=== PATIENT | female | born 2000 | race Caucasian/White ===

== ENCOUNTER 2021-04-22 18:50 | Observation (INO) | payer OTHER, SELFPAY ==
[~2021-04-22] VITALS: Ht 170.2 cm; Wt 81.6 kg
[2021-04-22] MEDS ORDERED: PNV91TAB10 PO (20:01)
[2021-04-22 20:25] VITALS: BP 96/54
[2021-04-22 21:07] LABS: BASOPHILS % (AUTO) 0.3 % (0.0-2.0); EOSINOPHILS # (AUTO) 0.1 K/uL (0-0.4); EOSINOPHILS % (AUTO) 0.9 % (0.0-4.0); HEMATOCRIT 26.6 % (36-48); HEMOGLOBIN 8.7 g/dL (12.0-16.0); LYMPHOCYTES # (AUTO) 1.6 K/uL (2.5-16.5); LYMPHOCYTES % (AUTO) 17.3 % (20.5-51.1); MEAN CORPUSCULAR HEMOGLOBIN 24 pg (27-31); MEAN CORPUSCULAR HGB CONC 33 g/dL (33-37); MEAN CORPUSCULAR VOLUME 73.7 fL (80-94); MONOCYTES # (AUTO) 0.7 K/uL (0.8-1.0); MONOCYTES % (AUTO) 7.8 % (1.7-9.3); NEUTROPHILS # (AUTO) 6.8 K/uL (1.8-7.7); NEUTROPHILS % (AUTO) 73.7 % (42.2-75.2); PLATELET COUNT (AUTO) 214 K/uL (140-450); RED CELL DISTRIBUTION WIDTH 18.1 % (11.6-13.7); WHITE BLOOD COUNT (AUTO) 9.2 K/uL (4.5-11.0)
[2021-04-22 21:17] LABS: BILIRUBIN,URINE NEGATIVE (NEGATIVE); BLOOD, URINE NEGATIVE (NEGATIVE); COLOR,URINE YELLOW (YELLOW); LEUKOCYTE ESTERASE ,URINE 3+ (NEGATIVE); NITRITE, URINE NEGATIVE (NEGATIVE); PH,URINE 6.5 (5.0-9.0); UGLUCOSE NEGATIVE (NEGATIVE)
[2021-04-22 21:18] LABS: APPEARANCE,URINE CLOUDY (CLEAR)
[2021-04-22 22:10] LABS: RBC,URINE 0-5 /HPF (0-5); WBC,URINE 60-80 /HPF (0-5)
[2021-04-23 01:00] LABS: APPEARANCE,URINE CLEAR (CLEAR); BILIRUBIN,URINE NEGATIVE (NEGATIVE); BLOOD, URINE NEGATIVE (NEGATIVE); COLOR,URINE YELLOW (YELLOW); LEUKOCYTE ESTERASE ,URINE NEGATIVE (NEGATIVE); NITRITE, URINE NEGATIVE (NEGATIVE); PH,URINE 6.5 (5.0-9.0); UGLUCOSE NEGATIVE (NEGATIVE)
== END 2021-04-23 03:00 | disposition home or self-care (01) ==
LOC: MLD 18:50
PROVIDERS: ADMIT Obstetrics & Gynecology; ATTEND Obstetrics & Gynecology
DX: O36.8130 Decreased fetal movements, third trimester, not applicable or unspecified (principal); Z20.822 Contact with and (suspected) exposure to COVID-19; O99.013 Anemia complicating pregnancy, third trimester; D64.9 Anemia, unspecified; Z3A.35 35 weeks gestation of pregnancy
CPT/HCPCS: 36415; 59025; 76819; 81001; 81003; 85025; 87426; G0378; Q0092; 87086

== ENCOUNTER 2021-05-11 11:43 | Observation (INO) | payer OTHER, SELFPAY ==
[~2021-05-11 11:43] MED LIST: PNV91TAB10 PO
[2021-05-11 12:22] VITALS: BP 116/65
== END 2021-05-11 14:15 | disposition home or self-care (01) ==
LOC: MLD 11:43
PROVIDERS: ADMIT Obstetrics & Gynecology; ATTEND Obstetrics & Gynecology
DX: O47.1 False labor at or after 37 completed weeks of gestation (principal); Z20.822 Contact with and (suspected) exposure to COVID-19; Z3A.38 38 weeks gestation of pregnancy
CPT/HCPCS: 59025; 76805; 81000; 87426; G0378; G0379; Q0092

== ENCOUNTER 2021-05-14 14:39 | Inpatient (IN) | payer OTHER ==
[~2021-05-14] VITALS: Ht 154.9 cm; Wt 83.9 kg
[2021-05-14] MEDS ORDERED: PREN-371 PO (15:14)
[2021-05-14] MEDS ORDERED: OXYTOCIN 10 UNITS/ML VIAL IM SCH (15:15)
[2021-05-14] MEDS ORDERED: PROMETHAZINE 25 MG/ML VIAL IVP PRN (15:15)
[2021-05-14] MEDS ORDERED: METHYLERGONOVINE 0.2 MG/ML AMP IM PRN (15:15)
[2021-05-14] MEDS ORDERED: CARBOPROST 250 MCG/ML AMP IM PRN (15:15)
[2021-05-14] MEDS ORDERED: AMPICILLIN 2,000 MG in NACL 0.9% MINI-BAG PLUS 100 ML IV SCH (15:15)
[2021-05-14] MEDS ORDERED: NALBUPHINE 10 MG/ML AMP IVP PRN (15:15)
[2021-05-14 16:04] LABS: BASOPHILS % (AUTO) 0.4 % (0.0-2.0); EOSINOPHILS % (AUTO) 0.5 % (0.0-4.0); HEMATOCRIT 27.4 % (36-48); HEMOGLOBIN 8.8 g/dL (12.0-16.0); LYMPHOCYTES # (AUTO) 1.3 K/uL (2.5-16.5); LYMPHOCYTES % (AUTO) 16.1 % (20.5-51.1); MEAN CORPUSCULAR HEMOGLOBIN 23 pg (27-31); MEAN CORPUSCULAR HGB CONC 32 g/dL (33-37); MEAN CORPUSCULAR VOLUME 72.9 fL (80-94); MONOCYTES # (AUTO) 0.6 K/uL (0.8-1.0); MONOCYTES % (AUTO) 7.7 % (1.7-9.3); NEUTROPHILS # (AUTO) 6.3 K/uL (1.8-7.7); NEUTROPHILS % (AUTO) 75.3 % (42.2-75.2); PLATELET COUNT (AUTO) 223 K/uL (140-450); RED BLOOD CELL COUNT(AUTO) 3.75 MIL/uL (4.20-5.40); RED CELL DISTRIBUTION WIDTH 19.7 % (11.6-13.7); WHITE BLOOD COUNT (AUTO) 8.3 K/uL (4.5-11.0)
[2021-05-14 16:43] LABS: APPEARANCE,URINE CLEAR (CLEAR); BILIRUBIN,URINE NEGATIVE (NEGATIVE); BLOOD, URINE NEGATIVE (NEGATIVE); COLOR,URINE YELLOW (YELLOW); LEUKOCYTE ESTERASE ,URINE NEGATIVE (NEGATIVE); NITRITE, URINE NEGATIVE (NEGATIVE); UGLUCOSE NEGATIVE (NEGATIVE)
[2021-05-14 16:44] LABS: ALBUMIN 2.5 g/dL (3.4-5.0); ANION GAP 11.1 (8-16); CARBON DIOXIDE 25.6 mmol/L (21-32); CREATININE 0.6 mg/dL (0.6-1.3); POTASSIUM 3.7 mmol/L (3.5-5.1); TOTAL BILIRUBIN 0.5 mg/dL (0.0-1.0)
[2021-05-14] MEDS ORDERED: MISOPROSTOL 25 MCG TAB VG SCH (18:00)
[2021-05-14] MEDS: LACTATED RINGERS 1,000 ML IV SCH (18:11)
[2021-05-14] MEDS ORDERED: AMPICILLIN 2,000 MG VIAL ONE (18:16)
[2021-05-14] MEDS ORDERED: AMPICILLIN 1,000 MG VIAL ONE (22:03)
[2021-05-14] MEDS: AMPICILLIN 1,000 MG in NACL 0.9% MINI-BAG PLUS 50 ML IV SCH (22:24)
[2021-05-15] MEDS ORDERED: AMPICILLIN 1,000 MG VIAL ONE ×5 (02:04→20:15)
[2021-05-15] MEDS: AMPICILLIN 1,000 MG in NACL 0.9% MINI-BAG PLUS 50 ML IV SCH ×5 (02:21→20:40)
[2021-05-15] MEDS: LACTATED RINGERS 1,000 ML IV SCH ×3 (04:00→22:55)
[2021-05-15] MEDS ORDERED: OXYTOCIN 20 UNITS in LACTATED RINGERS 1,000 ML IV SCH (05:30)
[2021-05-15] MEDS ORDERED: OXYTOCIN 20 UNITS/LR PREMIX 1,000 ML IV ONE (06:05)
--- NOTE | 2021-05-15 08:38 | NUR ---
PATIENT HAS BEEN SCREENED AND CATEGORIZED LOW NUTRITION RISK. PATIENT WILL BE SEEN WITHIN 7 DAYS OF ADMISSION. 05/21/[address]
[2021-05-16] MEDS ORDERED: AMPICILLIN 1,000 MG VIAL ONE (01:12)
[2021-05-16] MEDS: AMPICILLIN 1,000 MG in NACL 0.9% MINI-BAG PLUS 50 ML IV SCH ×2 (01:15→05:15)
== END 2021-05-16 08:10 | disposition left against medical advice (07) | DRG 566 ==
LOC: MLD 14:39
PROVIDERS: ADMIT Obstetrics & Gynecology; ATTEND Obstetrics & Gynecology
PROC: 3E033VJ Introduction of Other Hormone into Peripheral Vein, Percutaneous Approach (ICD-10-PCS; principal; 2021-05-14)
DX: O61.0 Failed medical induction of labor (principal); Z3A.39 39 weeks gestation of pregnancy
CPT/HCPCS: 36415; 80053; 81003; 85025; 86592; 86886; 86900; 86901; J0290; J2300; J2550; J2590